=== PATIENT | female | born 1980 | race African-American/Black ===

== ENCOUNTER 2018-11-23 12:25 | Emergency (ER) | payer OTHER ==
[2018-11-23] MEDS ORDERED: ACETAMINOPHEN 325 MG TABLET (FP) PO ONE (12:30)
--- NOTE | 2018-11-23 12:30 | PDOC ---
Rapid Medical Evaluation Time Seen by Provider: 11/23/18 12:27 Medical Evaluation: 11/23/18 12:27 I have performed a brief in-person evaluation of this patient. The patient presents with a chief complaint of: lower abdomen and back pain. 14 wks . 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 Discharge Disposition - Diagnosis Abdominal pain affecting - Referrals - Patient Instructions - Post Discharge Activity
[2018-11-23 12:38] VITALS: BP 131/68; PULSE 95; TEMP 98; BMI 48.5
[2018-11-23] MEDS ORDERED: ACETAMINOPHEN 325 MG TABLET (FP) ONE (12:43)
[2018-11-23 13:21] LABS: BASO % 0.3 % (0-2.0); EOS % 0.1 % (0-4.5); HEMATOCRIT 29.3 % (32.4-45.2); HEMOGLOBIN 9.8 GM/dL (10.7-15.3); LYMPH % 16.4 % (8-40); MCH 25.7 pg (25.7-33.7); MCHC 33.6 g/dl (32.0-36.0); MEAN CELL VOLUME 76.5 fl (80-96); MEAN PLT VOLUME 6.7 fl (7.5-11.1); NEUT % 73.2 % (42.8-82.8); PLATELET COUNT 386 K/MM3 (134-434); RBC 3.83 M/mm3 (3.60-5.2); RDW 15.7 % (11.6-15.6); WHITE BLOOD COUNT 11.5 K/mm3 (4.0-10.0)
[2018-11-23 13:43] LABS: ALBUMIN 2.8 g/dl (3.4-5.0); BILIRUBIN,TOTAL 0.4 mg/dL (0.2-1); BLOOD UREA NITROGEN 7.5 mg/dL (7-18); CALCIUM 9.2 mg/dL (8.5-10.1); CREATININE 0.8 mg/dL (0.55-1.3); POTASSIUM 3.4 mmol/L (3.5-5.1); TOT PROT 6.8 g/dl (6.4-8.2)
--- NOTE | 2018-11-23 15:26 | PDOC ---
History of Present Illness - General Chief Complaint: Pain Stated Complaint: ABD PAIN/ 14 WKS PRG Time Seen by Provider: 11/23/18 12:27 History Source: Patient Exam Limitations: No Limitations - History of Present Illness Travel History: No Initial Comments: 11/23/18 14:15 38-year-old female presents to ED with complaints of lower abdominal cramping worsening in severity intermittently over the past 2 weeks. Patient states is currently 14 weeks was told that she had a large uterine fibroid and so was given a few days of indomethacin which seemed to alleviate her pain that was prescribed by Dr. Cunha but now unable to tolerate the pain and Tylenol is not working. Patient denies any urinary complaints, fever, chills, vaginal bleeding or vaginal discharge. Timing/Duration: reports: getting worse, intermittent Quality: reports: moderate, cramping Abdominal Pain Onset Location: reports: suprapubic Pain Radiation: reports: no radiation Activities at Onset: reports: none Aggravating Factors: improves with: None Alleviating Factors: improves with: None Past History - Travel Traveled outside of the country in the last 30 days: No Close contact w/someone who was outside of country & ill: No - Past Medical History Allergies/Adverse Reactions: Allergies Allergy/AdvReac Type Severity Reaction Status Date / Time No Known Allergies Allergy Verified 11/23/18 12:38 Home Medications: Ambulatory Orders Ondansetron HCl [Zofran] 4 mg PO TID PRN #12 tablet 11/23/18 Oxycodone HCl/Acetaminophen [Percocet 5-325 mg Tablet] 1 tab PO BID PRN #6 tab MDD 2 11/23/18 COPD: No - Psycho Social/Smoking Cessation Hx Smoking History: Never smoked Have you smoked in the past 12 months: No Information on smoking cessation initiated: No Hx Alcohol Use: No Drug/Substance Use Hx: No Patient Lives Alone: No Lives with/in: spouse/SO Review of Systems - Review of Systems Able to Perform ROS?: Yes Constitutional: No: Symptoms Reported HEENTM: No: Symptoms Reported Respiratory: No: Symptoms reported Cardiac (ROS): No: Symptoms Reported ABD/GI: Yes: Symptoms Reported, Abdominal cramping : No: Symptoms Reported Musculoskeletal: No: Symptoms Reported Integumentary: No: Symptoms Reported Neurological: No: Symptoms reported Endocrine: No: Symptoms Reported Hematologic/Lymphatic: No: Symptoms Reported *Physical Exam - Vital Signs Last Vital Signs Temp Pulse Resp BP Pulse Ox 98.0 F 95 H 16 131/68 100 11/23/18 12:36 11/23/18 12:36 11/23/18 12:36 11/23/18 12:36 11/23/18 12:36 - Physical Exam General Appearance: Yes: Nourished, Appropriately Dressed. No: Apparent Distress HEENT: negative: Pale Conjunctivae Neck: positive: Normal Thyroid Respiratory/Chest: positive: Lungs Clear, Normal Breath Sounds. negative: Respiratory Distress, Accessory Muscle Use Cardiovascular: positive: Regular Rhythm, Regular Rate. negative: Murmur Gastrointestinal/Abdominal: positive: Soft, Tenderness (mid suprapubic. Gravid abdomen) Musculoskeletal: negative: CVA Tenderness Extremity: positive: Normal Inspection Integumentary: positive: Normal Color, Warm, Moist Neurologic: positive: Motor Strength 5/5 (ambulatory) ED Treatment Course - LABORATORY CBC & Chemistry Diagram: 11/23/18 13:04 11/23/18 13:04 - ADDITIONAL ORDERS Additional order review: Laboratory Results 11/23/18 11/23/18 11/23/18 13:04 13:04 13:04 Sodium 138 Potassium 3.4 L Chloride 104 Carbon Dioxide 24 Anion Gap 10 BUN 7.5 Creatinine 0.8 Est GFR (CKD-EPI)AfAm 109.16 Est GFR (CKD-EPI)NonAf 94.18 Random Glucose 87 Calcium 9.2 Total Bilirubin 0.4 AST 24 ALT 26 Alkaline Phosphatase 113 Total Protein 6.8 Albumin 2.8 L Beta HCG, Quant 56042.6 Blood Type O POSITIVE Antibody Screen Negative 11/23/18 13:04 RBC 3.83 MCV 76.5 L MCHC 33.6 RDW 15.7 H MPV 6.7 L Neutrophils % 73.2 Lymphocytes % 16.4 Monocytes % 10.0 Eosinophils % 0.1 Basophils % 0.3 - Medications Given in the ED: ED Medications Discontinued Medications Generic Name Dose Route Start Last Admin Trade Name Freq PRN Reason Stop Dose Admin Acetaminophen 975 mg 11/23/18 12:30 11/23/18 12:52 Tylenol - PO 11/23/18 12:31 975 mg ONCE ONE Administration Medical Decision Making - Medical Decision Making 11/23/18 16:17 CC: Lower abdominal cramping worsening over the past 2-3 weeks patient seen by Dr. cunha to give her indomethacin for a few days last week which alleviated her pain but now returned. Exam: Vital signs stable mid suprapubic ternderness Plan: Urine ultrasound and Tylenol ordered Discharge - Discharge Information Problems reviewed: Yes Clinical Impression/Diagnosis: Abdominal pain affecting Condition: Stable Disposition: HOME - Additional Discharge Information Prescriptions: Ondansetron HCl [Zofran] 4 mg PO TID PRN #12 tablet PRN Reason: Nausea And/Or Vomiting Oxycodone HCl/Acetaminophen [Percocet 5-325 mg Tablet] 1 tab PO BID PRN #6 tab MDD 2 PRN Reason: Pain - Follow up/Referral Referrals: ON STAFF,NOT [Primary Care Provider] - - Patient Discharge Instructions Patient Printed Discharge Instructions: DI for Abdominal Pain -- Early Additional Instructions: Please take Tylenol for pain and use Percocet as needed for severe pain. Drink plenty of fluids and eat small frequent meals throughout the day - Post Discharge Activity
[2018-11-23 16:09] LABS: URINE APPEARANCE CLOUDY; URINE BILIRUBIN NEGATIVE (NEGATIVE); URINE COLOR YELLOW; URINE GLUCOSE (UA) NEGATIVE (NEGATIVE); URINE KETONE 1+ (NEGATIVE); URINE LEUK ESTERASE NEGATIVE (NEGATIVE); URINE NITRITE NEGATIVE (NEGATIVE); URINE PROTEIN TRACE (NEGATIVE)
== END 2018-11-23 16:32 | disposition home or self-care (01) ==
LOC: JER 12:25
DX: O26.892 Other specified pregnancy related conditions, second trimester (principal); R10.30 Lower abdominal pain, unspecified; Z3A.14 14 weeks gestation of pregnancy
CPT/HCPCS: 36415; 76815-TC; 80053; 81003; 84702; 85025; 86850; 86900; 86901; 87086; 99282-25